=== PATIENT | female | born 2005 | race African-American/Black ===

== ENCOUNTER 2024-08-01 01:58 | Emergency (ER) | payer OTHER ==
[~2024-08-01] VITALS: Ht 152.4 cm; Wt 91.5 kg
[2024-08-01] MEDS: diphenhydrAMINE 25MG CAP PO ONE (06:29)
[2024-08-01 06:35] VITALS: BP 133/73; TEMP 97.4; O2SAT 98
== END 2024-08-01 06:43 | disposition home or self-care (01) ==
LOC: M ED 01:58
DX: L25.9 Unspecified contact dermatitis, unspecified cause (principal); I10 Essential (primary) hypertension; J45.909 Unspecified asthma, uncomplicated

== ENCOUNTER → 2025-06-07 | Outpatient (REF) | payer OTHER | LOC: M PLALAB 14:19 | PROVIDERS: ATTEND Advanced Practice Midwife | DX: Z53.9 Procedure and treatment not carried out, unspecified reason (principal) ==

== ENCOUNTER → 2025-06-07 | Outpatient (CLI) | payer OTHER ==
[2025-06-07 18:13] LABS: PLATELET COUNT, AUTOMATED 290 10^3/uL (150-450)
[2025-06-07 19:13] LABS: HIV 1&2 SCREEN NEGATIVE (NEGATIVE)
[2025-06-07 19:22] LABS: HEPATITIS C VIRUS ABY INDEX < 0.02 INDEX (<0.8)
[2025-06-07 19:43] LABS: Trichomonas vaginalis (AMP) NOT DETECTED (NEGATIVE)
[2025-06-07 20:06] LABS: GC DNA AMPLIFICATION NEGATIVE (NEGATIVE)
== END ==
LOC: M PLALAB 14:43
PROVIDERS: ATTEND Advanced Practice Midwife
DX: Z34.01 Encounter for supervision of normal first pregnancy, first trimester (principal); Z3A.00 Weeks of gestation of pregnancy not specified

== ENCOUNTER → 2025-08-01 | Outpatient (CLI) | payer OTHER | LOC: M WHC 08:51 | PROVIDERS: ATTEND Nurse Practitioner Family | DX: Z34.02 Encounter for supervision of normal first pregnancy, second trimester (principal); Z3A.19 19 weeks gestation of pregnancy ==